=== PATIENT | male | born 1945 | race Caucasian/White ===

== ENCOUNTER 2020-02-08 15:42 | Emergency (ER) | payer OTHER, MEDICAID ==
[~2020-02-08] VITALS: Ht 185.4 cm; Wt 74.8 kg
[2020-02-08 15:46] VITALS: BP 121/69
[2020-02-08] MEDS ORDERED: ACETAMINOPHEN 325 MG TAB PO ONE (16:30)
[2020-02-08 16:35] VITALS: BP 121/69
== END 2020-02-08 16:35 | disposition home or self-care (01) ==
LOC: MED 15:42
DX: R41.82 Altered mental status, unspecified (principal); Z00.00 Encounter for general adult medical examination without abnormal findings
CPT/HCPCS: 81002; 99283

== ENCOUNTER 2020-02-27 00:36 | Emergency (ER) | payer OTHER, MEDICAID ==
[~2020-02-27] VITALS: Ht 177.8 cm; Wt 68.9 kg
[2020-02-27 00:40] VITALS: BP 170/93
--- NOTE | 2020-02-27 00:43 | NUR ---
BIBA TO BED 07
--- NOTE | 2020-02-27 00:45 | NUR ---
PT SEEN AND EVALUATED BY CINDA CORBIN. NO NURSING INTERVENTIONS ORDERED.
[2020-02-27 01:00] VITALS: BP 170/93
--- NOTE | 2020-02-27 01:00 | NUR ---
Patient discharged with v/s stable. Written and verbal after care instructions given and explained. Patient alert, oriented and verbalized understanding of instructions. Ambulatory with steady gait. All questions addressed prior to discharge. ID band removed. Patient advised to follow up with PMD. Rx of KEFLEX, NORCO, NAPROSYN given. Patient educated on indication of medication including possible reaction and side effects. Opportunity to ask questions provided and answered.
== END 2020-02-27 01:00 | disposition home or self-care (01) ==
LOC: MED 00:36
DX: L03.115 Cellulitis of right lower limb (principal); Z71.6 Tobacco abuse counseling; Z98.890 Other specified postprocedural states
CPT/HCPCS: 99283

== ENCOUNTER 2020-03-30 19:28 | Emergency (ER) | payer OTHER, MEDICAID ==
[~2020-03-30] VITALS: Ht 185.4 cm; Wt 55.8 kg
[2020-03-30 19:35] VITALS: BP 178/103
[2020-03-30] MEDS ORDERED: ACETAMINOPHEN 325 MG TAB PO ONE ×2 (20:05)
[2020-03-30] MEDS ORDERED: traMADol 50 MG TAB PO ONE (20:05)
[2020-03-30] MEDS ORDERED: DEXAMETHASONE 4 MG/ML VIAL PO ONE (20:05)
[2020-03-30] MEDS ORDERED: KETOROLAC 15 MG/ML VIAL IM ONE (20:05)
[2020-03-30 21:25] VITALS: BP 178/103
== END 2020-03-30 21:25 | disposition home or self-care (01) ==
LOC: MED 19:28
DX: M54.32 Sciatica, left side (principal); I10 Essential (primary) hypertension
CPT/HCPCS: 96372; 99284; J1100; J1885